=== PATIENT | female | born 1990 | race Two or more races ===

== ENCOUNTER 2024-02-01 12:52 | Emergency (ER) | payer MEDICAID ==
[~2024-02-01] VITALS: Ht 157.5 cm; Wt 49.0 kg
[2024-02-01] MEDS: MAG HYDROX/AL HYDROX/SIMETH 30 ML UDC PO ONE (13:30)
[2024-02-01 14:19] LABS: BASOPHILS % (AUTO) 0.7 % (0.0-2.0); EOSINOPHILS # (AUTO) 0.2 K/uL (0.0-0.7); EOSINOPHILS % (AUTO) 2.8 % (0.0-6.0); HEMATOCRIT 39 % (33-45); LYMPHOCYTES # (AUTO) 1.7 K/uL (0.8-4.8); MEAN CORPUSCULAR HEMOGLOBIN 32 PG (26.0-33.0); MEAN CORPUSCULAR HGB CONC 34 g/dl (31.0-36.0); MEAN CORPUSCULAR VOLUME 94 fL (82-100); MONOCYTES # (AUTO) 0.4 K/uL (0.1-1.30); MONOCYTES % (AUTO) 6.5 % (2.0-12.0); NEUTROPHILS # (AUTO) 4.1 K/uL (1.8-8.9); PLATELET COUNT (AUTO) 202 K/uL (150-450); RED BLOOD CELL COUNT(AUTO) 4.11 MIL/uL (4.0-5.2); RED CELL DISTRIBUTION WIDTH 13.5 % (11.5-15.0); WHITE BLOOD COUNT (AUTO) 6.4 K/uL (4.3-11.0)
[2024-02-01] MEDS: IV NS 0.9% 1,000 ML BAG IV ONE (14:20)
[2024-02-01] MEDS ORDERED: MAG HYDROX/AL HYDROX/SIMETH 30 ML UDC ONE (14:23)
[2024-02-01] MEDS ORDERED: ONDANSETRON HCL/PF 4 MG/2 ML VIAL ONE (14:23)
[2024-02-01] MEDS ORDERED: LIDOCAINE VISCOUS 2% UD 15 ML UDC ONE (14:23)
[2024-02-01] MEDS ORDERED: FAMOTIDINE/PF INJ 20 MG/2 ML VIAL IV ONE (14:23)
[2024-02-01] MEDS: LIDOCAINE VISCOUS 2% UD 15 ML UDC MM ONE (14:34)
[2024-02-01] MEDS: ONDANSETRON HCL/PF 4 MG/2 ML VIAL IVP ONE (14:35)
[2024-02-01] MEDS: FAMOTIDINE/PF INJ 20 MG/2 ML VIAL IV ONE (14:37)
[2024-02-01 14:40] LABS: ALBUMIN 3.1 g/dL (3.4-5.0); BILIRUBIN,DIRECT 0.1 mg/dL (0.0-0.2); BILIRUBIN,TOTAL 0.4 mg/dL (0.2-1.0); CALCIUM, SERUM 8.7 mg/dL (8.5-10.1); CREATININE 0.5 mg/dL (0.6-1.3); POTASSIUM 4.2 mmol/L (3.5-5.1); TOTAL PROTEIN, SERUM 6.5 g/dL (6.4-8.2)
[2024-02-01 15:00] LABS: APPEARANCE,URINE CLEAR (CLEAR); BILIRUBIN,URINE NEGATIVE (NEGATIVE); BLOOD, URINE 2+ Ery/uL (NEGATIVE); COLOR,URINE OTHER (YELLOW); KETONES,URINE NEGATIVE (NEGATIVE); LEUKOCYTE ESTERASE ,URINE NEGATIVE (NEGATIVE); NITRITE, URINE NEGATIVE (NEGATIVE); PH,URINE 5.5 (5.0-8.0); PROTEIN,URINE NEGATIVE (NEGATIVE); UGLUCOSE NEGATIVE (NEGATIVE); UROBILINOGEN,URINE 0.2 EU/dL (0.2)
[2024-02-01 15:05] LABS: PREGNANCY TEST URINE QUAL NEGATIVE (NEGATIVE)
[2024-02-01 15:08] LABS: ADD URINE CULTURE NO; BACTERIA,URINE 1+ /HPF (None Seen); WBC,URINE 0-2 /HPF (0-3)
[2024-02-01] MEDS ORDERED: FAMO-131 PO (15:18)
[2024-02-01] MEDS ORDERED: ONDA4TAB5 PO (15:18)
[2024-02-01 16:29] VITALS: BP 136/82; TEMP 98.3; O2SAT 98
== END 2024-02-01 16:30 | disposition home or self-care (01) ==
LOC: ER 12:56
DX: R10.13 Epigastric pain (principal); R10.2 Pelvic and perineal pain; Z60.2 Problems related to living alone
CPT/HCPCS: 99285; 96374; 76705; 96361; 96375; 85025; 80048; 83690; 80076; 84703; 81001; 36415; J3490; J2405; J7030